=== PATIENT | female | born 1975 ===

== ENCOUNTER 2021-02-14 18:16 | Emergency (ER) | payer SELFPAY ==
[2021-02-14] MEDS ORDERED: HYDROcodone/ACETAMINOPHEN 5-325 MG TAB PO ONE (18:23)
--- NOTE | 2021-02-14 18:28 | Emergency Department Report ---
ED General Adult HPI - General Chief complaint: Extremity Injury, Lower Stated complaint: LEFT FOOT INJURY Time Seen by Provider: 02/14/21 18:23 Source: patient Mode of arrival: Ambulatory Limitations: Language Barrier - History of Present Illness Initial comments: 45-year-old female patient presents with complaints of left foot pain after a twist injury yesterday. She rates her pain as a 10/10 in severity. She states Aleve helps some. Pain worsens to touch and with ambulation. She also reports some swelling. No loss of sensation or bruising per patient. - Related Data Previous Rx's Medication Instructions Recorded Last Taken Type Acetaminophen/Codeine [Tylenol 1 tab PO Q8H PRN #6 tab 02/14/21 Unknown Rx /Codeine # 3 tab] Naproxen 500 mg PO BID PRN #20 tablet 02/14/21 Unknown Rx Allergies Allergy/AdvReac Type Severity Reaction Status Date / Time No Known Allergies Allergy Unverified 02/14/21 18:18 ED Review of Systems ROS: Stated complaint: LEFT FOOT INJURY Other details as noted in HPI Musculoskeletal: joint swelling, arthralgia Skin: denies: change in color Neurological: abnormal gait. denies: numbness, paresthesias ED Past Medical Hx - Past Medical History Previous Medical History?: No - Surgical History Past Surgical History?: No - Medications Home Medications: Home Medications Medication Instructions Recorded Confirmed Last Taken Type Acetaminophen/Codeine [Tylenol 1 tab PO Q8H PRN #6 tab 02/14/21 Unknown Rx /Codeine # 3 tab] Naproxen 500 mg PO BID PRN #20 tablet 02/14/21 Unknown Rx ED Physical Exam - General Limitations: Language Barrier General appearance: alert, in no apparent distress - Head Head exam: Present: atraumatic, normocephalic - Eye Eye exam: Present: normal appearance. Absent: scleral icterus - Cardiovascular Cardiovascular Exam: Present: regular rate - Extremities Exam Extremities exam: Present: other (Tenderness to palpation noted across the left distal metatarsals and first MCP joint with mild swelling; normal pedal pulses and perfusion is noted along with normal sensation) - Neurological Exam Neurological exam: Present: alert, oriented X3. Absent: normal gait (Antalgic) - Psychiatric Psychiatric exam: Present: normal affect, normal mood - Skin Skin exam: Present: warm, dry, intact, normal color. Absent: rash ED Course Vital Signs 02/14/21 18:21 Temperature 98.6 F Pulse Rate 89 Respiratory 20 Rate Blood Pressure 127/67 O2 Sat by Pulse 99 Oximetry ED Medical Decision Making - Radiology Data Radiology results: report reviewed RIGHT FOOT 3 VIEWS INDICATION / CLINICAL INFORMATION: mid/distal MT pain and 1st MTP pain after injury COMPARISON: None available. FINDINGS: BONES / JOINT(S): No acute fracture or subluxation. Mild calcaneal spurring. SOFT TISSUES: No significant abnormality. ADDITIONAL FINDINGS: None. - Medical Decision Making 45-year-old female patient presents with complaints of left foot pain after a twist injury yesterday. She rates her pain as a 10/10 in severity. She states Aleve helps some. Pain worsens to touch and with ambulation. She also reports some swelling. No loss of sensation or bruising per patient. X-rays negative for any acute bony abnormalities. Sprain with rice method and crutches. Recommend follow-up with PCP in 3 to 5 days, orthopedics as needed. Discussed in detail signs and symptoms that should prompt immediate return to the emergency department with patient who verbalizes understanding. She is well-appearing, stable for discharge home. Critical care attestation.: If time is entered above; I have spent that time in minutes in the direct care of this critically ill patient, excluding procedure time. ED Disposition Clinical Impression: Foot injury Disposition: 01 HOME / SELF CARE / HOMELESS Is pt being admited?: No Condition: Stable Instructions: Foot Sprain Prescriptions: Naproxen 500 mg PO BID PRN #20 tablet PRN Reason: pain Acetaminophen/Codeine [Tylenol /Codeine # 3 tab] 1 tab PO Q8H PRN #6 tab PRN Reason: Pain , Severe (7-10) Referrals: PRIMARY CARE, [Referring] - 3-5 Days [facility] [Provider Group] - 3-5 Days [facility] [Provider Group] - as needed Print Language: [place]ALLIS[place]
--- NOTE | 2021-02-14 18:59 | XRay Report ---
RIGHT FOOT 3 VIEWS INDICATION / CLINICAL INFORMATION: mid/distal MT pain and 1st MTP pain after injury COMPARISON: None available. FINDINGS: BONES / JOINT(S): No acute fracture or subluxation. Mild calcaneal spurring. SOFT TISSUES: No significant abnormality. ADDITIONAL FINDINGS: None. Signer Name: Chaz Patino MD Signed: 02/14/2021 6:55 PM Workstation Name: [id number]
[2021-02-14 22:28] VITALS: BP 133/86
== END 2021-02-14 22:28 | disposition home or self-care (01) ==
LOC: ED 18:16
DX: S99.929A Unspecified injury of unspecified foot, initial encounter (principal); X58.XXXA Exposure to other specified factors, initial encounter; Y93.89 Activity, other specified; Y92.89 Other specified places as the place of occurrence of the external cause; Y99.8 Other external cause status
CPT/HCPCS: 99283